=== PATIENT | male | born 1965 | race Caucasian/White ===

== ENCOUNTER 2019-08-02 14:31 | Emergency (ER) | payer OTHER ==
[~2019-08-02] VITALS: Ht 182.9 cm; Wt 109.1 kg
[2019-08-02 14:38] VITALS: BP 127/93; TEMP 97.6
[2019-08-02] MEDS ORDERED: ZANTAC 7575 MG PO (15:05)
[2019-08-02] MEDS ORDERED: ALEVE 220MG220 MG PO (15:06)
[2019-08-02] MEDS ORDERED: CEPHALEXIN500 M1 PO (16:03)
[2019-08-02 16:25] VITALS: PULSE 78
== END 2019-08-02 16:25 | disposition home or self-care (01) ==
LOC: COL.ER 14:31
DX: S01.511A Laceration without foreign body of lip, initial encounter (principal); K21.9 Gastro-esophageal reflux disease without esophagitis; F17.210 Nicotine dependence, cigarettes, uncomplicated; Z23 Encounter for immunization; W22.8XXA Striking against or struck by other objects, initial encounter; Y99.0 Civilian activity done for income or pay

== ENCOUNTER → 2019-08-09 | Outpatient (CLI) | payer OTHER ==
[~2019-08-09] MED LIST: ALEVE 220MG220 MG PO; CEPHALEXIN500 M1 PO; ZANTAC 7575 MG PO
[2019-08-09 06:45] VITALS: BP 133/73; PULSE 91; TEMP 98.4
== END ==
LOC: COL.ER 06:43
DX: S01.511D Laceration without foreign body of lip, subsequent encounter (principal); X58.XXXD Exposure to other specified factors, subsequent encounter